=== PATIENT | female | born 1990 | race African-American/Black ===

== ENCOUNTER 2018-10-12 08:37 | Day surgery (SDC) | payer MEDICAID, OTHER ==
[2018-10-12] MEDS ORDERED: ENOXAPARIN SODIUM 40 MG/0.4 ML DISP.SYRIN SQ ONE (08:48)
[2018-10-12] MEDS ORDERED: MIDAZOLAM HCL 2 MG/2 ML VIAL ONE (08:48)
[2018-10-12] MEDS ORDERED: BUPIV. HCL 0.25% (2.5MG/ML)/EPI. (1:200,000) PF 30 ML VIAL IJ ONE (08:48)
[2018-10-12] MEDS ORDERED: SODIUM CHLORIDE IRRIG SOLUTION 3,000 ML IRRIG.SOLN IR ONE (08:48)
[2018-10-12] MEDS ORDERED: SEVOFLURANE 250 ML LIQUID IH ONE (08:48)
[2018-10-12] MEDS ORDERED: ceFAZolin SODIUM 1 GM VIAL ONE (08:48)
[2018-10-12] MEDS ORDERED: LIDOCAINE HCL 2% PF 100MG/5ML VIAL IJ ONE (08:48)
[2018-10-12] MEDS ORDERED: ROCURONIUM BROMIDE 10 MG/ML 5ML VIAL ONE (08:48)
[2018-10-12] MEDS ORDERED: FAMOTIDINE 20 MG/2 ML VIAL IV ONE (08:48)
[2018-10-12] MEDS ORDERED: MEPERIDINE (NF) 100 MG/ML INJ ONE (08:48)
[2018-10-12] MEDS ORDERED: LACTATED RINGERS 1,000 ML IV.SOLN IV ONE ×2 (08:48)
[2018-10-12] MEDS ORDERED: LEVALBUTEROL NEB 1.25 MG/3 ML VIAL.NEB NEB ONE (08:48)
[2018-10-12] MEDS ORDERED: SUCCINYLCHOLINE CHLORIDE 200 MG/10 ML VIAL ONE (08:48)
[2018-10-12] MEDS ORDERED: DEXAMETHASONE SODIUM PHOSPHATE 10 MG/ML VIAL ONE (08:48)
[2018-10-12] MEDS ORDERED: MORPHINE SULFATE 10 MG/ML VIAL ONE (08:48)
[2018-10-12] MEDS ORDERED: SUGAMMADEX SODIUM 200 MG/2 ML VIAL IV ONE (08:48)
[2018-10-12] MEDS ORDERED: PROPOFOL 200 MG/20 ML VIAL IV ONE (08:48)
[2018-10-12] MEDS ORDERED: LIDOCAINE HCL 1% PF 300MG/30ML VIAL ONE (08:48)
[2018-10-12] MEDS ORDERED: ONDANSETRON HCL/PF 4 MG/ 2ML VIAL ONE (08:48)
[2018-10-12] MEDS ORDERED: SCOPOLAMINE HYDROBROMIDE 1.5MG/72HR PATCH TD ONE (08:48)
--- NOTE | 2018-10-12 14:32 | Operative Note ---
PREOPERATIVE DIAGNOSIS: Morbid obesity. POSTOPERATIVE DIAGNOSIS: Morbid obesity. PROCEDURES PERFORMED: 1. Laparoscopic vertical sleeve gastrectomy. 2. Upper gastrointestinal endoscopy. SURGEON: Jayson Craft M.D. INDICATIONS FOR PROCEDURE: Ms. Vallecillo is a 28-year-old female who presented with features of morbid obesity. She was noted to have a weight of 220 pounds with a BMI of 40.56 The patient was advised laparoscopic vertical sleeve gastrectomy. The patient showed understanding and agreed to proceed. DESCRIPTION OF PROCEDURE: After explaining to the patient in detail and informed consent was obtained, the patient was identified in the preoperative holding area. The patient was transferred to the operating room and was placed in supine position. Sequential compressive devices were placed for DVT prophylaxis. Preoperative antibiotics were given. After induction of anesthesia, the abdomen was prepped and draped in a sterile fashion. Through a left upper quadrant 1-cm incision, and using Optiview technique, the peritoneal cavity was entered and pneumoperitoneum was created. Thereafter, under direct vision, another 5-mm trocar was placed in the left midabdomen and another 15-mm trocar was placed in the right midabdomen. Through a 1-cm incision in the right subcostal region, another 5-mm trocar was placed. Through a 1-cm incision in the epigastrium, a Rukhsana retractor was introduced and the left lobe of the liver was retracted. On initial inspection, the patient was noted to have no evidence of hiatal hernia. I took down the gastroepiploic vessels using a LigaSure. This was continued superiorly. The short gastric vessels were taken down. The gastrophrenic ligament was divided and the Angle of His was mobilized. The posterior attachments of the stomach on the pancreas were released. Distally, the gastroepiploic vessels were taken down up to about 4 cm proximal to the pylorus. At this point, a #38 [place] Hurst Bougie was introduced into the stomach and was placed along the lesser curve. The stomach was then divided in a vertical fashion with multiple Endo ISAAC Covidien Black Load Staplers. The first firing was directed outwards towards the greater curvature. Subsequent firings were directed towards the Angle of His to create a loose sleeve around the #38 [place] bougie. The bougie was then removed and an upper GI endoscopy was performed at this point. The scope was introduced into the esophagus and was gradually advanced into the stomach. The GE junction appeared normal. The sleeve size appeared normal. No evidence of any active bleeding was noted. The stomach was insufflated with air and irrigation of fluid along the staple line revealed no evidence of air leak. The stomach was then suctioned out and the scope was removed. Absolute hemostasis was ensured. Thorough saline irrigation was given. The Rukhsana retractor was removed. Approximately 10 mL of a lidocaine- Marcaine mix was instilled under the left hemidiaphragm. The sleeve gastrectomy specimen was removed. The abdomen was then deflated. The incisions were closed with 4-0 Monocryl. Dermabond was applied. Approximately 10 mL of a lidocaine- Marcaine mix was injected into all the incisions. The patient was awakened from anesthesia and was transferred to the recovery room in stable condition. ESTIMATED BLOOD LOSS: Approximately 25 mL. CONDITION OF THE PATIENT: Stable. FLUIDS GIVEN: Per Anesthesia note. SPECIMEN(S) SENT: Sleeve gastrectomy specimen. COMPLICATIONS: None. ANESTHESIA: General. Jayson Craft M.D. EBENEZER/leigh ann (Please copy [facility] provider when applicable) Job #[id number] REINA
[2018-10-30] MEDS ORDERED: MEPERIDINE (NF) 100 MG/ML INJ ONE (15:42)
== END 2018-10-12 13:49 | disposition other institution (70) ==
LOC: OPSURG 08:37
PROVIDERS: ATTEND Surgery
DX: E66.01 Morbid (severe) obesity due to excess calories (principal); Z68.41 Body mass index [BMI] 40.0-44.9, adult
CPT/HCPCS: 43235; 43775; 88305; A9270; J0330; J0690; J1650; J2001; J2175; J2250; J2270; J2405; J2704; J7120; J7614

== ENCOUNTER 2018-10-12 13:50 | Inpatient (IN) | payer MEDICAID, OTHER ==
[2018-10-12] MEDS ORDERED: MORPHINE SULFATE 10MG/0.5ML ORAL SOLN UD CUP PO PRN (14:06)
[2018-10-12] MEDS ORDERED: PROMETHAZINE HCL 25 MG in 0.9 % SODIUM CHLORIDE 50 ML IV PRN (14:06)
[2018-10-12] MEDS ORDERED: LEVALBUTEROL NEB 1.25 MG/3 ML VIAL.NEB IH PRN (14:06)
[2018-10-12 14:25] VITALS: BMI 40.5
--- NOTE | 2018-10-12 14:29 | History and Physical Report ---
History of Present Illnes - History of Present Illness Reason for Visit: S/P LSG History of Present Illness: Patient is a 28-year-old female who has tried multiple diets and exercise programs with no success. She states that she has struggles with her weight since high school and worsened when she started having children. It was decided to go ahead with LSG. Procedure went well- patient will be admitted and monitored s/p surgical intervention. Patient has been on a liquid diet prior to surgery so she is a risk of dehydration. She will be admitted for IV hydration to help hydrate patient until she is able to tolerate a sufficient oral intake, will treat pain with IV medication until patient is able to tolerate oral meds, IV antiemetics to help reduce episodes of nausea and/or vomiting. Patient will be monitored closely using telemetry. - Past Medical History Gastrointestinal: GERD Musculoskeletal: Chronic low back pain Grav: 6 Para: 5 Ab: 1 - Past Surgical History Past Surgical History: , Other (cervical cerclage x 3) - Past Family History Mother Family History: Hypertension Father Family History: Cancer, CAD - Past Social History Smoke: Quit (2016) Alcohol: Rare Drugs: None Lives: With Family Domestic Violence: Negative - Health Maintenance Health Maintenance: Cholesterol. denies: Influenza Vaccine Influenza Vaccine: No, Patient Refused Pneumonia Vaccine: No Resuscitation Status: Resusciation Status Resuscitation Status Full Code Review of Systems - Review of Systems Constitutional: negative: Fever, Chills Eyes: negative: conjunctivae inflammation, eyelid inflammation ENT: negative: Ear Pain, Nose Pain, Throat Pain Respiratory: negative: Shortness of Breath Cardiovascular: negative: Chest Pain Gastrointestinal: Nausea, Abdominal Pain. negative: Vomiting Genitourinary: negative: Dysuria Musculoskeletal: negative: Back Pain Skin: Other (incision sites x 5) Neurological: negative: Weakness - Medications/Allergies Allergies/Adverse Reactions: Allergies Allergy/AdvReac Type Severity Reaction Status Date / Time No Known Allergies Allergy Verified 10/12/18 13:33 Current Inpatient Medications: Current Inpatient Medications Hydrocodone Bitart/Acetaminophen (Hycet 7.5-325mg/15 Ml Ud Cup) 15 ml PO Q4 PRN PRN Reason: PAIN 5-7 Stop: 10/16/18 14:05 Cefazolin Sodium/Dextrose (Ancef 1 Gm/50 Ml-Dextrose) 1 gm IV Q8H [facility] Stop: 10/13/18 04:01 Enoxaparin Sodium (Lovenox) 40 mg SQ DAILY [facility] Stop: 10/27/18 08:59 Famotidine (Pepcid) 20 mg IVP BID [facility] Stop: 10/16/18 20:59 Promethazine HCl 25 mg/ Sodium (Chloride) 51 mls @ 200 mls/hr IV Q6 PRN PRN Reason: Nausea / Vomiting Stop: 10/16/18 14:05 Sodium Chloride (Normal Saline) 1,000 mls @ 150 mls/hr IV Q8H [facility] Ketorolac Tromethamine (Toradol) 30 mg IV Q6H PRN PRN Reason: For Mild Pain Stop: 10/16/18 14:05 Levalbuterol HCl (Xopenex Neb) 1.25 mg IH Q4H PRN PRN Reason: Wheezing Morphine Sulfate () 4 mg IVP Q2 PRN PRN Reason: PAIN 8-10 Stop: 10/13/18 14:05 Morphine Sulfate (Roxanol) 10 mg PO Q4 PRN PRN Reason: PAIN 8-10 Stop: 10/16/18 14:05 Ondansetron HCl (Zofran) 4 mg IVP Q6H PRN PRN Reason: Nausea / Vomiting Stop: 10/16/18 14:05 Exam - Exam Vital Signs: Vital Signs (72 hours) 10/12/18 10/12/18 14:16 14:20 Temperature 96.9 F L 96.9 F L Pulse Rate [ 73 73 Pulse ox] Respiratory 16 16 Rate Blood Pressure 161/87 161/87 [Right Arm] O2 Sat by Pulse 98 98 Oximetry General: Alert, Oriented to Person, Oriented to Place, Oriented to Time, Morbidly Obese HEENT: PERRLA, Nose Mucous membr. moist/[place] Neck: Normal Range of Motion Carotids: no bruit Lungs: Clear to auscultation, Normal air movement Cardiovascular: Regular rate, Normal S1, Normal S2 Peripheral Edema: none Peripheral Pulses: 2+ Abdomen: Soft, Decreased Bowel Sounds Integumentary: Wil[place], Warm, Dry, Other (incision site x 5- intact) Extremities: Normal pulses, No tenderness/swelling Neurological: Normal speech, Strength Equal Bilat, Normal tone, Sensation intact Psych/Mental Status: Mental status NL, Mood NL, Appropriate Affect, Intact Judgment Assessment/Plan - Assessment/Plan (1) Status post gastric surgery Status: Acute Current Visit: Yes Plan: Plan to admit for IV hydration, IV pain meds, and IV antiemetics. Lovenox and SCDs to help prevent DVTs, IS and frequent ambulation will be implemented. Start ice chips and advance diet as tolerated. (2) Morbid obesity due to excess calories Status: Acute Current Visit: Yes Plan: Patient is s/p gastric sleeve. We will assist patient with implementing gastric sleeve diet protocol starting with ice chips and clear liquids and advancing as tolerated once nausea is controlled and patient is able to tolerate PO (3) GERD (gastroesophageal reflux disease) Status: Acute Current Visit: Yes Qualifiers: Esophagitis presence: esophagitis presence not specified Qualified Code(s): K21.9 - Gastro-esophageal reflux disease without esophagitis Plan: Will give Pepcid IV BID (4) Back pain Status: Acute Current Visit: Yes Qualifiers: Back pain location: back pain in unspecified location Back pain laterality: unspecified Plan: Will have patient up and ambulating; may offer K-pad as needed VTE Assessment - RISK FACTOR SCORE VTE RISK FACTOR SCORES: OBESITY, MAJOR SURGERY/ANESTHESIA TIME > 1 HOUR - RISK VTE MODERATE RISK: SCORE OF 2 (RISK PROXIMAL DVT 2-4%) PROPHYAXIS NEEDED (Lovenox daily, SCDs while in bed, IS, frequent ambulation)
[2018-10-12] MEDS: 0.9 % SODIUM CHLORIDE 1,000 ML IV SCH (14:34)
[2018-10-12] MEDS: KETOROLAC TROMETHAMINE 30 MG/1ML VIAL IV PRN (15:46)
[2018-10-12] MEDS: ONDANSETRON HCL/PF 4 MG/ 2ML VIAL IVP PRN (16:33)
[2018-10-12] MEDS: MORPHINE SULFATE 4 MG/ML VIAL IVP PRN ×2 (16:35→21:48)
[2018-10-12] MEDS: FAMOTIDINE 20 MG/2 ML VIAL IVP SCH (21:49)
[2018-10-12] MEDS: ceFAZolin SODIUM 1 GM/50 ML PIGGYBACK IV SCH (21:57)
[2018-10-13] MEDS: ONDANSETRON HCL/PF 4 MG/ 2ML VIAL IVP PRN (01:02)
[2018-10-13] MEDS: KETOROLAC TROMETHAMINE 30 MG/1ML VIAL IV PRN (04:00)
[2018-10-13] MEDS: 0.9 % SODIUM CHLORIDE 1,000 ML IV SCH ×3 (04:01→11:21)
[2018-10-13] MEDS: ceFAZolin SODIUM 1 GM/50 ML PIGGYBACK IV SCH (04:05)
[2018-10-13 06:55] LABS: eGFR (Non-African) > 60
--- NOTE | 2018-10-13 07:06 | Inpatient Progress Note ---
Subjective - Required Recertification Statement I anticipate X number of days because-include discharge plan: 1 - Review of Systems Events since last encounter: Patient states that she had a "GOOD" night. She had some nausea but able to tolerate PO- she was encouraged to sip her drinks and wait in between drinks- she states that her pain is tolerable and pain medications are working. She has been up walking in the [place], wearing SCDs while in bed, and using Incentive Spirometry- incision sites are dry and intact. General: Denies: Chills, Fatigue HEENT: Denies: Head Aches, Dysphasia Pulmonary: Denies: Dyspnea, Cough Cardiovascular: Denies: Chest Pain Gastrointestinal: Nausea, Abdominal Pain. Denies: Vomiting Genitourinary: Denies: Dysuria Musculoskeletal: Denies: Back Pain Neurological: Denies: Weakness Objective - Exam Vitals and I&O: Vital Signs Temp 97.0 F L 10/13/18 06:00 Pulse 54 L 10/13/18 06:00 Resp 16 10/13/18 06:00 BP 140/78 10/13/18 06:00 Pulse Ox 99 10/13/18 06:00 Intake & Output 10/12/18 10/12/18 10/13/18 11:59 23:59 11:59 Intake Total 1250 1740 Output Total 1000 400 Balance 250 1340 Weight 103.873 kg Intake: IV 750 1500 left AC 750 1500 Oral 500 240 Output: Urine 1000 400 Other: Voiding Method Toilet Toilet # Voids 1 1 General: Alert, Oriented to Person, Oriented to Place, Oriented to Time, Cooperative, No acute distress, Morbidly Obese HEENT: Atraumatic, PERRLA, Mouth Mucous membr. moist/[place], Nose Mucous membr. moist/[place] Neck: Supple, +2 carotid pulse wo bruit Lungs: Clear to auscultation, Normal air movement, Speaks full Sentences Cardiovascular: Regular rate, Normal S1, Normal S2 Abdomen: Normal bowel sounds, Soft Extremities: No edema, Normal pulses, No tenderness/swelling Skin: Normal, [place], Warm, Dry, Other (incisions are dry and intact) Neurological: Normal gait, Normal speech, Strength Equal Bilat, Normal tone, Sensation intact Psych/Mental Status: Mental status NL, Mood NL, Appropriate Affect, Intact Judgment - Results Results: Laboratory Results WBC 15.30 K/ul (4.00-12.00) H 04/26/19 06:00 RBC 4.20 M/ul (3.90-5.20) 10/13/18 06:00 Hgb 11.4 g/dL (11.5-16.0) L 10/13/18 06:00 Hct 35.1 % (34.5-46.5) 10/13/18 06:00 MCV 84.0 fl (80.0-100.0) 10/13/18 06:00 MCH 27.0 pg (28.0-34.0) L 10/13/18 06:00 MCHC 32.4 g/dL (30.0-36.0) 10/13/18 06:00 RDW 24.5 % (11.3-14.3) H 10/13/18 06:00 Plt Count 201 K/mm3 (130-400) 10/13/18 06:00 Sodium 133 mmol/L (137-145) L 10/13/18 06:00 Potassium 4.1 mmol/L (3.5-5.1) 10/13/18 06:00 Chloride 106 mmol/L (98-107) 10/13/18 06:00 Carbon Dioxide 22 mmol/L (22-30) 10/13/18 06:00 BUN 5 mg/dL (7-17) L 10/13/18 06:00 Creatinine 0.57 mg/dL (0.52-1.04) 10/13/18 06:00 Estimated Creat Clear 280 10/13/18 06:00 Est GFR ( Amer) > 60 (60-) 10/13/18 06:00 Est GFR (Non-Af Amer) > 60 (60-) 10/13/18 06:00 Glucose 114 mg/dL (74-106) H 10/13/18 06:00 Calcium 8.7 mg/dL (8.4-10.2) 10/13/18 06:00 Total Bilirubin 0.2 mg/dL (0.2-1.3) 10/13/18 06:00 AST 42 U/L (15-46) 10/13/18 06:00 ALT 17 U/L (0-35) 10/13/18 06:00 Alkaline Phosphatase 61 U/L (38-126) 10/13/18 06:00 Total Protein 6.9 g/dL (6.3-8.2) 10/13/18 06:00 Albumin 3.6 g/dL (3.5-5.0) 10/13/18 06:00 Assessment/Plan - Assessment/Plan (1) Status post gastric surgery Status: Acute Current Visit: Yes Plan: Will continue to have patient ambulate frequently in the [place], wear SCDs while in bed, frequent use of incentive spirometer, continue IVF until patient can take in sufficient oral intake- pt is tolerating po meds (2) Morbid obesity due to excess calories Status: Acute Current Visit: Yes Plan: Will continue with gastric sleeve diet protocol- clear liquids (3) GERD (gastroesophageal reflux disease) Status: Acute Current Visit: Yes Qualifiers: Esophagitis presence: esophagitis presence not specified Qualified Code(s): K21.9 - Gastro-esophageal reflux disease without esophagitis Plan: Will continue with Pepcid IV BID (4) Back pain Status: Acute Current Visit: Yes Qualifiers: Back pain location: back pain in unspecified location Back pain laterality: unspecified Plan: stable- no c/o back pain
[2018-10-13 07:15] LABS: ANISOCYTOSIS 2+ (NEGATIVE); BASOPHILS % 6 % (0-2); MONOCYTES % 7 % (0-11); OVALOCYTES 1+ (NEGATIVE); SEGMENTED NEUTROPHILS % 79 % (39-79)
[2018-10-13] MEDS: HYDROcodone-ACETAMIN 7.5-325/15ML SOLN UD CUP PO PRN ×3 (08:11→20:10)
[2018-10-13] MEDS: ENOXAPARIN SODIUM 40 MG/0.4 ML DISP.SYRIN SQ SCH (08:13)
[2018-10-13] MEDS: FAMOTIDINE 20 MG/2 ML VIAL IVP SCH ×2 (08:13→21:34)
--- NOTE | 2018-10-14 05:57 | Discharge Summary ---
Discharge Summary - Discharge [facility] Admission Date: 10/12/18 Discharge Date: 10/14/18 History of Present Illness: Patient is a 28-year-old female who has tried multiple diets and exercise programs with no success. She states that she has struggles with her weight since high school and worsened when she started having children. It was decided to go ahead with LSG. Procedure went well- patient will be admitted and monitored s/p surgical intervention. Patient has been on a liquid diet prior to surgery so she is a risk of dehydration. She will be admitted for IV hydration to help hydrate patient until she is able to tolerate a sufficient oral intake, will treat pain with IV medication until patient is able to tolerate oral meds, IV antiemetics to help reduce episodes of nausea and/or vomiting. Patient will be monitored closely using telemetry. Condition at Discharge: Stable Home Medications: Ambulatory Orders Medication Instructions Recorded Multivitamin [One-Daily 1 each PO DAILY 10/12/18 Multi-Vitamin] Consultations this Visit: None Procedures this Visit: Other (S/P LSG) Allergies/Adverse Reactions: Allergies Allergy/AdvReac Type Severity Reaction Status Date / Time No Known Allergies Allergy Verified 10/12/18 13:33 Discharge Summary: Patient is a 28-year-old female that underwent the gastric sleeve procedure and has done well. She has been very cooperative with her care by ambulating frequently, using her incentive spirometer, and wearing her SCDs while in bed. She has been compliant with her diet during hospitalization. She is having minimal discomfort at this time and minimal nausea- she has is passing gas and belching. She is aware of discharge instructions and what she can and cannot do post surgical- she is aware of the strict diet she must follow to decrease discomfort and have success after procedure. She has family support and family will be taking her home- medications written by surgeon given to patient. She feels ready to go home. Hospital Course: Patient received pain medications, antiemetics, and IVF and was transitioned to oral. She has been up ambulating and using incentive spirometer. - Final Diagnosis (1) Status post gastric surgery Problems: Incision without redness or drainage, positive bowel sounds, minimal discomfort, belching and flatus, no extremity pain or edema Right or Left: Right (2) Morbid obesity due to excess calories Problems: Continue with bariatric diet- clear liquids today and start full liquid tomorrow Right or Left: Right (3) GERD (gastroesophageal reflux disease) Problems: stable Right or Left: Right (4) Back pain Problems: stable Right or Left: Right
[2018-10-14 06:00] LABS: MEAN CORPUSCULAR HEMOGLOBIN 27.5 pg (28.0-34.0)
[2018-10-14 06:05] LABS: BASOPHILS % 0.5 % (0.0-1.5); EOSINOPHILS % 0.8 % (0.0-6.8); MONOCYTES % 9.1 % (0.0-11.0); NEUTROPHILS # 6.4 # k/uL (1.4-7.7)
[2018-10-14 06:06] LABS: eGFR (Non-African) > 60
[2018-10-14] MEDS: ENOXAPARIN SODIUM 40 MG/0.4 ML DISP.SYRIN SQ SCH (09:21)
[2018-10-14] MEDS: FAMOTIDINE 20 MG/2 ML VIAL IVP SCH (09:22)
[2018-10-14 09:30] VITALS: BP 159/88
== END 2018-10-14 09:50 | disposition home or self-care (01) | DRG 641 ==
LOC: SOUTH 13:50
PROVIDERS: ADMIT Nurse Practitioner Family; ATTEND Nurse Practitioner Family
DX: E66.01 Morbid (severe) obesity due to excess calories (principal); G89.18 Other acute postprocedural pain; R11.0 Nausea; K21.9 Gastro-esophageal reflux disease without esophagitis; M54.5 Low back pain
CPT/HCPCS: 80048; 80053; 85025; 99222; 99231; 99238; J1650; J1885; J2270; J2405; A9270-GY; J7030